=== PATIENT | male | born 1950 | race Hispanic/Latino ===

== ENCOUNTER 2019-10-05 03:21 | Observation (INO) | payer MEDICARE, OTHER ==
[2019-10-05] MEDS ORDERED: Ondansetron ODT 4 MG TAB SL PRN (06:04)
[2019-10-05] MEDS ORDERED: Morphine 2 MG/ML SYRINGE SLOW IVP PRN (06:04)
[2019-10-05] MEDS ORDERED: Ondansetron PF 4 MG/2 ML Vial IVP PRN (06:04)
[2019-10-05 06:43] VITALS: BMI 28.1
[2019-10-05] MEDS: Sodium Chloride 0.9% 1,000 ML IV SCH ×2 (06:53→15:47)
[2019-10-05] MEDS ORDERED: Prevnar 13-Val Conj/PF 0.5 ML SYRINGE IM ONE (07:45)
--- NOTE | 2019-10-05 07:46 | ULT ---
PRELIMINARY REPORT/[facility]/EMERGENCY AFTER HOURS PROCEDURE: Receipt of this report by the clinical staff was confirmed with Suzi Wayne RN by Velma Daniel on October 05, 2019 04:29:00 CDT. Addendum electronically signed by Velma Daniel on October 05, 2019 4:29:36 AM CDT US RUQ History: ABD pain x 2 days, N/V Comparison: None Findings: Limited evaluation. Pancreas is mostly obscured by bowel gas. The common bile duct is not visualized. Right kidney is partially obscured by bowel gas. Visualized portions of the right kidney are otherwise unremarkable. No hydronephrosis. Portal vein is pain with hepatopedal flow. Mil d echogenic appearance of the liver parenchyma which may relate to steatosis. No intrahepatic biliary ductal dilatation or space-occupying lesion identified. Multiple shadowing gallstones are se en in the gallbladder. There is trace pericholecystic fluid. Gallbladder wall is mildly thickened at 4 mm. Positive sonographic Fung sign. Impression: 1. Cholelithiasis. Sonographic findings are suggestive of acute cholecystitis in the appropriate cl inical setting. 2. Mild hepatic steatosis. No intrahepatic biliary ductal dilatation. Common bile duct is obscured . 3. Bowel gas limits evaluation, as above. Remainder of exam is otherwise unremarkable. ELECTRONICALLY SIGNED BY: Yossi Cm DO October 05, 2019 4:22:23 AM CDT FINAL REPORT: ULTRASOUND GALLBLADDER RIGHT UPPER QUADRANT: CLINICAL HISTORY: Nausea, vomiting. Abdominal pain.. COMPARISON: None. FINDINGS: Pancreas: Obscured by bowel gas. Liver:Hepatic parenchyma has a normal echotexture. No hepatic masses or intrahepatic biliary dilatati on. Right hepatic lobe: 17.4 cm. Gallbladder: Multiple echogenic foci within the lumen of the gallbladder compatible with gallstones. Gallbladder wall is thickened measuring 0.4 cm. Fung's sign:Positive. Portal Vein: Patent. Appropriate directional flow. Bile ducts: Suboptimal evaluation the common bile ducts. Right kidney: Limited evaluation of the right kidney. Grossly no hydronephrosis. Right kidney measure s 10.9 cm in length. IMPRESSION: 1. This report is in agreement with initial report by [facility]. 2. Cholelithiasis with sonographic evidence for cholecystitis. Transcribed Date/Time: 10/05/2019 9:53 AM
[2019-10-05] MEDS ORDERED: Piperacillin/Tazobactam 3.375 GM in Sodium Chloride 0.9% 100 ML IVPB SCH (08:00)
--- NOTE | 2019-10-05 09:10 | HP ---
CHIEF COMPLAINT: Right upper quadrant abdominal pain. HISTORY OF PRESENT ILLNESS: The patient is a 68-year-old male, with 3-day history of epigastric and right upper quadrant pain associated with nausea and vomiting. No fever. He had an ultrasound showing acute cholecystitis, gallstones. PAST MEDICAL HISTORY: Eczema, hypertension, and migraine headaches. PAST SURGICAL HISTORY: He has had bilateral inguinal hernia repair in 1989. MEDICATIONS: Losartan. Flomax. Methylprednisolone for eczema. ALLERGIES: NO KNOWN DRUG ALLERGIES. FAMILY HISTORY: Hypertension. SOCIAL HISTORY: He is . 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 No tobacco or alcohol. PHYSICAL EXAMINATION: VITAL SIGNS: His temperature 98.6, pulse 88, and blood pressure 123/77. GENERAL: Well-developed, well-nourished male, in no apparent distress. HEENT: No jaundice. LUNGS: Clear. HEART: Regular rate and rhythm. ABDOMEN: Obese, soft, and tender in the right upper quadrant. Well-healed surgical scars from inguinal hernia repair. EXTREMITIES: Unremarkable. LABORATORY DATA: White count is 15, H and H of 14 and 46, and platelet count 205. Electrolytes are fine. His glucose is elevated at 127. His bilirubin is 1.4. IMAGING YULIYA: CT ultrasound show acute cholecystitis. PLAN: Laparoscopic cholecystectomy with cholangiogram. CONSENT: I have discussed planned procedure as well as risk of bleeding, infection, injury to bile duct, injury to bowel, and need to open. He understands and gives informed consent. Job ID: [id number]
[2019-10-05] MEDS ORDERED: Iopamidol 50 ML FS ONE (11:13)
[2019-10-05] MEDS ORDERED: Lidocaine 1% w/Epinephrine 1:100K 20 ML VIAL ONE (11:13)
[2019-10-05] MEDS ORDERED: Bupivacaine 0.25% HCL 30 ML VIAL ONE (11:13)
[2019-10-05] MEDS ORDERED: Fentanyl 100 MCG/2 ML VIAL ONE ×2 (11:17→13:24)
--- NOTE | 2019-10-05 12:25 | CON ---
DATE OF CONSULTATION: 10/05/2019 REASON FOR CONSULTATION: Urinary retention. CHIEF COMPLAINT: Weak urinary stream. HISTORY OF PRESENT ILLNESS: This is a 68-year-old male, currently admitted with cholecystitis. Planning to undergo cholecystectomy with Dr. Karimi. In the preop holding area, he was found to be retaining over 400 mL postvoid residual. A 16-Albanian catheter was attempted without success and so I was asked to assist. In speaking with the patient, he tells me that for the past 1 to 2 years, he has been having difficulty urinating, reporting a very slow stream, voiding only small amounts at any given time with urgency, frequency, and nocturia. His primary care provider has started him on Flomax, but he says this did not provide much benefit. He tells me he has no history of retention requiring a catheter or infections. No prior urologic surgeries. He denies dysuria, hematuria, or suprapubic pain. PAST MEDICAL HISTORY: Hypertension. PAST SURGICAL HISTORY: Inguinal hernia repair. MEDICATIONS: Reviewed. Pertinent for Flomax 0.4 mg daily. ALLERGIES: NONE. FAMILY HISTORY: Reviewed. Noncontributory. SOCIAL HISTORY: Nonsmoker. No substance abuse. PHYSICAL EXAMINATION: VITAL SIGNS: Afebrile. Vitals are stable. GENERAL: No acute distress, conversant. HEENT: Head; normocephalic and atraumatic. Eyes; extraocular movements intact. Sclerae are nonicteric. NECK: Supple. Trachea midline. LUNGS: Breathing unlabored. Symmetric chest expansion. HEART: Regular rate and rhythm. ABDOMEN: Soft. Diffusely tender, worse on the right side. Nondistended. No flank tenderness. No suprapubic tenderness. Bladder nonpalpable. GENITOURINARY: Normal intact phallus. Testicles present in the scrotum. Normal meatus. EXTREMITIES: Without clubbing, cyanosis, or edema. SKIN: Warm and dry. NEUROLOGIC: Alert and oriented x3. PSYCHIATRIC: Normal mood and affect. Dooley catheter placed. This will be dictated separately. Catheter will need to remain for about 5 days. I will arrange for him to come to my clinic next week for void trial. Job ID: [id number] MTDD
[2019-10-05] MEDS ORDERED: Dextrose 50% Abboject 50 ML SYRINGE SLOW IVP PRN (12:56)
[2019-10-05] MEDS ORDERED: Promethazine HCl 25 MG/ML VIAL IM PRN ×2 (12:56→13:02)
[2019-10-05] MEDS ORDERED: Dextrose 5% in Water 1,000 ML IV PRN (12:56)
[2019-10-05] MEDS ORDERED: Mag-Al 1200 mg/1200 mg/30 ML UDCUP PO PRN (12:56)
[2019-10-05] MEDS ORDERED: Calcium Carbonate 500 MG ChewTAB PO PRN (12:56)
[2019-10-05] MEDS ORDERED: hydrALAZINE 20 MG/ML VIAL SLOW IVP PRN (12:56)
[2019-10-05] MEDS ORDERED: HYDROcodone/Acetaminophen 10/325 mg Tablet PO PRN (12:56)
[2019-10-05] MEDS ORDERED: Morphine 4 MG/ML VIAL SLOW IVP PRN (12:56)
[2019-10-05] MEDS ORDERED: Promethazine HCl 25 MG/ML VIAL SLOW IVP PRN (13:02)
[2019-10-05] MEDS ORDERED: Ondansetron HCl/PF 4 MG/2 ML Vial IVP PRN (13:02)
[2019-10-05] MEDS ORDERED: Dexamethasone 20 MG/5 ML VIAL ONE (15:01)
[2019-10-05] MEDS ORDERED: Ondansetron PF 4 MG/2 ML Vial ONE (15:01)
[2019-10-05] MEDS ORDERED: Rocuronium Bromide 10 MG/ML (10ML VIAL) ONE (15:01)
[2019-10-05] MEDS ORDERED: PHENYLEPHRINE-NS 100 MCG/ML 10 ML SYRINGE ONE (15:01)
[2019-10-05] MEDS ORDERED: PROPOFOL 200 MG/20 ML VIAL ONE (15:01)
[2019-10-05] MEDS ORDERED: Glycopyrrolate 0.2 MG/ML 5 ML SYRINGE ONE (15:01)
[2019-10-05] MEDS ORDERED: Ketorolac Tromethamine 30 MG/ML VIAL ONE (15:01)
--- NOTE | 2019-10-05 15:26 | RAD ---
INTRAOPERATIVE CHOLANGIOGRAM: DATE: 10/05/2019. HISTORY: Cholelithiasis, laparoscopic cholecystectomy. FINDINGS: A single image from an intraoperative cholangiogram demonstrates contrast media within the intrahepat ic biliary tree and common bile duct. No biliary filling defects are appreciated. There is contrast media within the duodenum. IMPRESSION: Intraoperative cholangiogram as detailed above. POS: LACEY
--- NOTE | 2019-10-05 16:12 | OP ---
DATE OF PROCEDURE: 10/05/2019 CHIEF COMPLAINT: Urinary retention. PROCEDURE: Complex Dooley catheter placement. DESCRIPTION OF PROCEDURE: After examination, there were no obvious abnormalities that would indicate possible urethral stricture. I assume that the most likely cause was enlarged prostate, and so 10 mL of lubricating jelly was instilled into his urethra and milked back into the posterior urethra. A 20-Thai Coude catheter was carefully guided with the tip of the catheter pointing superiorly into the bulbar urethra and guided through the prostate into the bladder. The jelly was then irrigated out of the catheter, noting drainage of clear yellow urine. About 400 mL drained immediately. 10 mL were instilled in the balloon and this was connected to his leg with a StatLock device. I explained to the patient that this will need to remain postoperatively for a few days before being removed in my office next week. Job ID: [id number]
[2019-10-05] MEDS: Piperacillin/Tazobactam 3.375 GM in Sodium Chloride 0.9% 100 ML IVPB SCH (18:24)
[2019-10-05] MEDS: Ketorolac Tromethamine 30 MG/ML VIAL IVP SCH (18:25)
[2019-10-05] MEDS: Famotidine 20 MG TAB PO SCH (20:56)
[2019-10-05] MEDS: Famotidine/PF 20 mg/2ml Vial SLOW IVP SCH (20:56)
[2019-10-05] MEDS: HYDROcodone/Acetaminophen 10/325 mg Tablet PO PRN (22:30)
[2019-10-06] MEDS: Piperacillin/Tazobactam 3.375 GM in Sodium Chloride 0.9% 100 ML IVPB SCH ×4 (00:44→18:11)
[2019-10-06] MEDS: Ketorolac Tromethamine 30 MG/ML VIAL IVP SCH ×4 (00:44→18:11)
[2019-10-06] MEDS: Sodium Chloride 0.9% 1,000 ML IV SCH ×4 (00:45→19:54)
[2019-10-06 06:34] LABS: #Lymphocytes 0.7 thou/uL (1.20-3.40); #Monocytes 0.7 thou/uL (0.11-0.59); #Neutrophils 13.5 thou/uL (1.40-6.50); %Basophils 0.1 % (0.0-1.0); %Eosinophils 0.1 % (0.0-10.0); %Lymphocytes 4.8 % (21.0-51.0); %Monocytes 4.6 % (0.0-10.0); %Neutrophils 90.5 % (42.0-75.0); Hemoglobin 12.2 g/dL (14.0-18.0); Mean Corpuscular HGB CONC 32.5 g/dL (32.0-36.0); Mean Corpuscular Hemoglobin 32.3 pg (27.0-31.0); Mean Corpuscular Volume 99.3 fL (78.0-98.0); Platelet Count 180 thou/uL (130-400); RBC Distribution Width 12.6 % (11.5-14.5); Red Blood Cell (RBC) Count 3.78 mill/uL (4.70-6.10)
[2019-10-06] MEDS: Ondansetron PF 4 MG/2 ML Vial IVP PRN ×2 (06:34→19:54)
[2019-10-06 06:56] LABS: ALT (SGPT) 66 U/L (8-55); AST (SGOT) 68 U/L (5-34); Alkaline Phosphatase 94 U/L (40-110); Anion Gap 9 mmol/L (10-20); BUN (Urea Nitrogen) 13 mg/dL (8.4-25.7); Bilirubin, Total 1.5 mg/dL (0.2-1.2); Calc. Creatinine Clearance 83 mL/min (70-130); Calcium 7.9 mg/dL (7.8-10.44); Carbon Dioxide 25 mmol/L (23-31); Chloride 107 mmol/L (98-107); Estimated GFR-MDRD 74; Globulin 2.2 g/dL (2.4-3.5); Glucose 115 mg/dL (80-115); Lipase Less than 4 U/L (8-78); Potassium 4.4 mmol/L (3.5-5.1); Protein, Total 5.2 g/dL (5.8-8.1); Sodium 137 mmol/L (136-145)
[2019-10-06] MEDS: Famotidine 20 MG TAB PO SCH ×2 (07:28→19:54)
[2019-10-06] MEDS: Enoxaparin Sodium 30 MG/0.3 ML SYRINGE SC SCH (07:28)
[2019-10-06] MEDS: HYDROcodone/Acetaminophen 10/325 mg Tablet PO PRN (07:28)
[2019-10-06] MEDS: Famotidine/PF 20 mg/2ml Vial SLOW IVP SCH ×2 (07:29→21:17)
--- NOTE | 2019-10-06 08:49 | PRG ---
DATE OF SERVICE: 10/06/2019 SUBJECTIVE: Postop day 1. Mr. Gray is complaining of periumbilical pain. He has not ambulated much. He is complaining of mild nausea. OBJECTIVE: VITAL SIGNS: He is afebrile. His vital signs are stable. ABDOMEN: Soft and appropriately tender. LABORATORY DATA: His white blood cell count is 15. His hemoglobin is 12. Creatinine is 1.0. Bilirubin is up slightly at 1.5. Liver tests are otherwise normal. IMAGING DATA: Operative cholangiogram had revealed no filling defects. ASSESSMENT: Postop day 1 laparoscopic cholecystectomy complicated by urinary retention and need for postop drain. PLAN: Advance diet. Suspect to be ready for discharge tomorrow. Job ID: [id number]
[2019-10-07] MEDS: Ketorolac Tromethamine 30 MG/ML VIAL IVP SCH ×2 (00:05→05:07)
[2019-10-07] MEDS: Piperacillin/Tazobactam 3.375 GM in Sodium Chloride 0.9% 100 ML IVPB SCH ×2 (00:05→05:06)
[2019-10-07] MEDS: Sodium Chloride 0.9% 1,000 ML IV SCH (05:16)
[2019-10-07 07:21] VITALS: BP 132/78; TEMP 98.4
[2019-10-07] MEDS ORDERED: Polyethylene Glycol 3350 17 GM Packet PO SCH (08:30)
--- NOTE | 2019-10-07 08:33 | DIS ---
DATE OF ADMISSION: 10/05/2019 DATE OF DISCHARGE: 10/07/2019 ADMITTING DIAGNOSIS: Acute cholecystitis. DISCHARGE DIAGNOSIS: Acute cholecystitis. PROCEDURES: Cholecystectomy by Trev without complication. He required catheter placement by Urology. STAFF: Trev. CONDITION ON DISCHARGE: Improved. HOSPITAL COURSE: Postop, the patient did well. Ambulatory, tolerating diet, had not had a bowel movement. He was discharged home. Recommended he take MiraLAX. Prescriptions already given by Dr. Karimi. He will follow up with Dr. Haider next week for voiding trial, possible catheter removal, and Dr. Karimi in 3 days for possible drain removal. Job ID: [id number]
[2019-10-07] MEDS: Famotidine/PF 20 mg/2ml Vial SLOW IVP SCH (08:35)
[2019-10-07] MEDS: Famotidine 20 MG TAB PO SCH (08:35)
[2019-10-07] MEDS: Enoxaparin Sodium 30 MG/0.3 ML SYRINGE SC SCH (08:35)
--- NOTE | 2019-10-07 16:08 | OP ---
DATE OF PROCEDURE: 10/05/2019 PREOPERATIVE DIAGNOSIS: Acute cholecystitis. PROCEDURE PERFORMED: Laparoscopic cholecystectomy with intraoperative cholangiogram. INDICATIONS: A 68-year-old male, with a 3-day history of right upper quadrant pain. Ultrasound showed multiple stones and thickened wall. FINDINGS: Gangrenous gallbladder, very large, containing multiple stones. Cholangiogram was fine. DESCRIPTION OF PROCEDURE: After informed consent was obtained, the patient was taken to the operating room, given general endotracheal anesthesia, placed in supine position. Abdomen was prepped and draped in usual fashion. A supraumbilical incision was performed, subcu divided sharply. The fascia was grasped and 2 stay sutures of 0 Vicryl placed on either side of midline. Midline incised. Digital palpation revealed no local adhesions. A blunt 12 mm trocar inserted. Pneumoperitoneum was created to a pressure of 15 mmHg. A 0-degree laparoscope inserted under direct vision, three 5-mm ports were placed subcostally. The gallbladder was distended and encased in omentum. This was taken down to reveal a very inflamed gangrenous gallbladder. It was very distended. It had to be aspirated, 150 mL of infected bile removed from the gallbladder. This was also sent for culture. Then the gallbladder could be grasped and advanced superiorly. Distally, it was dissected out to expose the cystic duct and artery in critical view. A clip was placed at the base of the gallbladder and an incision made in the cystic duct. An Arrow cholangiocatheter inserted. Intraoperative cholangiogram was performed utilizing fluoroscopy. This showed free flow in the duodenum, no filling defects, and a small caliber common duct. The catheter removed and the cystic duct triply ligated and divided. The artery triply ligated with hemoclips and divided. The gallbladder removed from its fossa, but the posterior wall was necrotic. The gallbladder was placed in an endosac. There was some spillage of stones. These were retrieved and placed in the endosac. Then, everything was removed through the umbilical incision with endosac. I had to enlarge the fascial opening to deliver the specimen. Hemostasis was assured. A drain was placed and brought out through the lateral-most incision. Then, the fascia was closed with interrupted [id number] of 2-0 Vicryl. Subcu irrigated. Skin closed with interrupted 4-0 Rapide. Dermabond applied. The patient tolerated the procedure well, transferred to Recovery in good condition. Sponge and needle count verified correct x2. Job ID: [id number]
== END 2019-10-07 11:07 | disposition home or self-care (01) ==
LOC: ERS 03:21 → SJJU 05:19
PROVIDERS: ADMIT Surgery; ATTEND Surgery
PROC: 0FT44ZZ Resection of Gallbladder, Percutaneous Endoscopic Approach (ICD-10-PCS; principal; 2019-10-05)
PROC: BF121ZZ Fluoroscopy of Gallbladder using Low Osmolar Contrast (ICD-10-PCS; 2019-10-05)
PROC: 0T9B70Z Drainage of Bladder with Drainage Device, Via Natural or Artificial Opening (ICD-10-PCS; 2019-10-05)
DX: K80.12 Calculus of gallbladder with acute and chronic cholecystitis without obstruction (principal); K82.A1 Gangrene of gallbladder in cholecystitis; R33.9 Retention of urine, unspecified; Z79.82 Long term (current) use of aspirin; Z79.899 Other long term (current) drug therapy
CPT/HCPCS: 47532; 47563; 76705; 80053; 83690; 85025; 87070; 87075; 87077; 87186; 87205; 88304; 90670; 93005; 96361 ×3; 96365; 96366 ×2; 96372 ×2; 96375 ×2; 96376 ×3; 99285; G0009; G0378 ×3; 36415; 90471; 93010; J1100; J1650; J1885; J2270; J2405; J2543; J2704; J3010; J3490; Q9967; S0020